=== PATIENT | male | born 1970 | race Caucasian/White ===

== ENCOUNTER 2017-01-16 17:44 | Inpatient (IN) | payer MEDICARE, MEDICAID ==
[2017-01-16] VITALS (15 sets, daily range): BP systolic 140–168; BP diastolic 55–106; PULSE 98–120; RESP 17–36; O2SAT 90–96
[~2017-01-16] VITALS: Ht 177.8 cm; Wt 130.2 kg
[~2017-01-16 17:44] MED LIST: ALBU3SOL2 IH; ALBUTHFA INH; BUDE1AMP IH; COU5 PO; FLONASE; FURO-3 PO; HC1O30 EXT; POTASSIUM 99MG PO; PRAM0.5T PO; RES15 PO; RISP0.254 PO; [UNRECOGNIZED DRUG - CODE] PO
--- NOTE | 2017-01-16 17:44 | ED.REPORT ---
HPI-Dyspnea / Wheezing Date of Service Jan 16, 2017 ED Provider: Asael Garcia MD Pt is a 46 year old male with a history of HTN and COPD who presents to the ED via EMS after an episode of respiratory distress. Per EMS, the pt c/o SOB onset this morning. EMS reports that the pt was found with wheezing and low SPO2. He presented to urgent care and was provided DuoNeb without relief. Pt denies chest pain, fever, diaphoresis, chills, nausea, and vomiting. The pt reports that he has mild swelling his legs, which is normal for him. He denies a history of recent surgeries. Pt is currently on Warfarin, and he reports that he was supposed to have his Warfarin levels checked today. Nursing Notes Stated Complaint: RESPIRATORY DISTRESS Chief Complaint: Respiratory Distress Nursing Notes Reviewed: Yes Allergies: Coded Allergies: Penicillins (Verified Allergy, Intermediate, HIVES, 01/16/17) Sulfa (Sulfonamide Antibiotics) (Verified Allergy, Unknown, 01/16/17) amoxicillin (Verified Allergy, Unknown, 01/16/17) latex (Verified Allergy, Unknown, 01/16/17) Scheduled Albuterol/Ipratropium (DuoNEB Nebule) 3 Ml Nebu 3 ML IH 6x day 1 NEB IH QID Furosemide-Expunged Drug, Do Not Renew! (Furosemide-Expunged Drug, Do Not Renew! ) 40 Mg Tablet 40 MG PO DAILY Levetiracetam-Expunged Drug, Do Not Renew! (Levetiracetam-Expunged Drug, Do Not Renew!) 500 Mg Tab.er.24h 1,000 MG PO BID TAKE 2 TABLETS(1000MG) Pramipexole-Expunged Drug, Do Not Renew! (Mirapex-Expunged Drug, Do Not Renew!) 0.5 Mg Tab 0.5 MG PO HS TAKE ONE-HALF TO ONE TABLET(0.25MG-0.5MG) ORALLY 1-2 HOURS BEFORE BEDTIME. Risperidone (Risperdal) 1 Mg Tablet 1 MG PO BID Salmeterol Xinafoate (Serevent Diskus) 50 Mcg/Puff Inhaler 1,400 MCG IH a12hr Warfarin Inactive Drug Do Not Use (Coumadin Inactive Drug Do Not Use) 5 Mg Tablet 5 MG PO TAKE DIRECTED BY A PHYSICIAN. Warfarin Sodium (Warfarin Sodium) 5 Mg Tablet 2.5 MG PO [id number] General Time Seen by MD: 17:44 Chief Complaint Shortness of breath Hx Obtained From: Patient, EMS Arrived By: Ambulance Sudden in Onset?: No Onset Occurred: 2 days ago Symptom Duration: Since onset Severity: Current: No pain currently Severity: Maximum: No pain Recent Healthcare: Recent doctor visit Similar Sx Previous: Yes Past Medical History Past Medical History History of sleep apnea on BiPAP Distant history of pulmonary embolism on warfarin Reports: COPD, Hypertension Past Surgical History Denies Smoking History Current Every Day Smoker (made a comment that he might be stopping shortly) Social History Alcohol Use: Denies alcohol use Drug Use: Denies drug use Other Social History: Good social support Ambulatory Status Independent Review of Systems Constitutional: Denies: Chills, Fever Respiratory: Reports: Dyspnea on exertion, Non-productive cough, Shortness of breath Musculoskeletal: Reports: Extremity swelling (which is baseline for him) Skin: Denies Diaphoresis Complete sys rev & neg: except as marked. GI: Denies: Nausea, Vomiting Physical Exam Initial Vital Signs Vital Signs (First) Date Time Temp Pulse Resp B/P Pulse Ox O2 Delivery O2 Flow Rate FiO2 01/16/17 17:46 120 36 162/106 91 Room Air BiPAP 01/16/17 18:08 36.7 01/16/17 18:17 35 01/16/17 19:00 2 Initial VS: Reviewed, Vital signs abnormal Head / Eyes: Atraumatic, Normocephalic Abdomen / GI: Soft, Non-tender Extremities: Vascular intact, Neuro intact Skin: Warm, Dry, No cyanosis Neurologic: Alert, Oriented, Nonfocal Psychiatric: Mood/affect normal, Behavior normal General/Constitutional: Awake, Alert Neck: Atraumatic, Supple, Full range of motion Resp Distress / Stridor: Positive: Resp distress moderate Fairly dypneic. Fairly diminished breath sounds with poor air movement, which is not chronic. Cardiovascular: Heart rate NL, Regular rhythm, Heart sounds NL +1 edema of both legs, which he states is chronic Interpretation & Diagnostics Lab Results Interpretation Result Diagram: 01/16/17 1752 01/16/17 1752 Test 01/16/17 17:30 01/16/17 17:52 01/16/17 17:58 01/16/17 18:35 White Blood Count 9.8th/mm3 (3.8-10.1) Red Blood Count 5.86mil/mm3 (4.40-5.80) Hemoglobin 17.5g/dL (13.8-17.2) Hematocrit 50.9% (41.0-50.0) Mean Corpuscular Volume 86.9fL (81-100) Mean Corpuscular Hemoglobin 29.9pg (27.0-35.0) Mean Corpuscular Hemoglobin Concent 34.4% (32.0-37.0) Red Cell Distribution Width 13.4% (12.3-15.4) Platelet Count 164bil/L (150-400) Neutrophils (%) (Auto) 88.2% (40-74) Lymphocytes (%) (Auto) 5.3% (14-46) Monocytes (%) (Auto) 5.9% (4-12) Eosinophils (%) (Auto) 0% (0-5) Basophils (%) (Auto) 0.3% (0-3) Sodium Level 137mEq/L (134-144) Potassium Level 4.6mEq/L (3.5-5.2) Chloride Level 98mEq/L (97-108) Carbon Dioxide Level 21mmol/L (18-29) Blood Urea Nitrogen 7mg/dL (6-24) Creatinine 0.83mg/dL (0.76-1.27) Estimat Glomerular Filtration Rate 105mL/min (>59) Glucose Level 125mg/dL (60-99) Calcium Level 8.7mg/dL (8.5-10.1) Total Bilirubin 0.8mg/dL (0.0-1.2) Aspartate Amino Transf (AST/SGOT) 25U/L (0-50) Alanine Aminotransferase (ALT/SGPT) 17U/L (0-44) Alkaline Phosphatase 99U/L (25-150) Troponin T < 0.010ug/L (0.0-0.011) Pro-B-Type Natriuretic Peptide 38.81pg/mL (0-121) Total Protein 7.8g/dL (6.4-8.4) Albumin 4.3g/dL (3.4-5.0) Prothrombin Time 36.7sec (8.1-12.5) Prothromb Time International Ratio 3.35ratio Lactic Acid Level 0.9mmol/L (0.4-2.0) Lab Results Interpretation: CBC polycythemic secondary to hypoxia/smoking CMP normal INR supratherapeutic Lactic acid normal Troponin negative CMP negative ECG Interpretation ECG Interpretation: Sinus tachycardia with a rate of 117 Time: 17:53 Interpreted by: ED physician X-Ray Chest Interpretation Chest Xray Interpretation: IMPRESSION: 1. No acute cardiopulmonary disease. Dictated by: Giuseppe Bartlett M.D. on 01/16/2017 at 18:16 View: Portable, 1 view Interpretation / Wet Read by: Interpret - Radiologist Re-Eval/Medical Decision Med Decision/Clinical Course Presents with a one-day history of worsening shortness breath or other COPD. He does have a distant history of pulmonary embolism and is on warfarin, reports no pleuritic chest pain or symptoms similar to his prior PE. He denies fevers chills or additional complaint. When EMS was contacted, he is hypoxic and respiratory distress and he received nebulizer urgent care, and then continue nebulizer placed on BiPAP due to his level of distress. On arrival, he is tachypneic, dyspneic, mildly hypoxic with poor air movement. He is not febrile, he has no overt findings of DVT on clinical exam. He received aggressive albuterol, Atrovent, continued BiPAP, Solu-Medrol, and made steady improvement with improvement in aeration and decrease in respiratory distress to the point that the BiPAP can be discontinued. His INR is slightly supratherapeutic, and I do not find an indication to suggest this is a pulmonary embolus. The patient given his COPD exacerbation was offered antibiotics, initial plan was to Zithromax given the reported allergy profile, but as it was about to be initiated he reports that "Zithromax makes me really worse" so this was held, and the end he received a dose of doxycycline, and is here hoping to go home he received it orally. However on rechecks he continue to have persistent bronchospasm and always while he is markedly improved, he is not improved to the point of discharge home-. Patient agrees. He is being admitted for continued management and the case is discussed with the hospital list. Source of Hx: Old records Re-Evaluation/Progress #1: Time of Eval: 18:35 Re-Evaluation/Progress Note: Pt rechecked. Pt reports that he is feeling better and agrees with plan to try a trial off Bipap. All questions addressed. Re-Evaluation/Progress #2: Time of Eval: 20:13 Re-Evaluation/Progress Note: Pt rechecked. Informed pt of plan for admission. Pt understands and agrees with plan for admission. All questions addressed. Consultation : Referral / Consult Name: Vish Butcher MD Consulted With: Hospitalist Call Returned at: 20:13 Computer Aided Drafter: Will see patient, Agrees with eval, Agrees with plan, Accepts admit Differential Diagnosis: Positive: COPD exacerbation, Negative: Acute coronary syndrome, Congestive heart failure, Dysrhythmia, Hypertensive emergency, Inhalation injury, Pneumonia, Pneumothorax, Pulmonary embolism, Respiratory failure Counseled Regarding: Diagnosis, Lab results, Need for admission Discharge & Departure Impression: Primary Impression: Acute exacerbation of chronic obstructive pulmonary disease (COPD) Additional Impressions: Tobacco abuse Supratherapeutic INR Disposition: ADMITTED TO HOSPITAL Discharge Condition All VS Reviewed: Yes Condition: Stable Referrals: Felipe Perkins DO (PCP) Crit Care Except Billable Proc Time Spent: 30-74 minutes Services Performed: Patient management by me, Time spent at bedside, Reviewing test results, Reviewing imaging, Discussing patient care, Documentation in record Scribe Attestation Portions of this note were transcribed by Rosy Garcia. I, Dr. Garcia personally performed the history, physical exam and medical decision-making; I reviewed and confirmed the accuracy of the information in the transcribed note. Signed by: Brittani Stark, 01/16/17. copies to: Felipe Perkins Matthew F MD Jan 16, 2017 17:44 Rosy Mariee Jan 16, 2017 17:53
[2017-01-16] MEDS ORDERED: Albuterol 2.5 mg/3 mL Inhalation Solution NEB ONE ×2 (17:55→19:35)
[2017-01-16] MEDS ORDERED: Ipratropium 0.02% 0.5 mg/2.5 mL Inhalation Solution NEB ONE (17:55)
[2017-01-16] MEDS ORDERED: MethylprednisoLONE Sodium Succinate 62.5 mg/mL 2 mL Inj IVPUSH ONE (17:55)
[2017-01-16 17:58] LABS: BASOPHILS % (AUTO) 0.3 % (0-3); EOSINOPHILS % (AUTO) 0 % (0-5); MONOCYTES % (AUTO) 5.9 % (4-12); Mean Corpuscular Hemoglobin 29.9 pg (27.0-35.0); Mean Corpuscular Volume 86.9 fL (81-100); NEUTROPHILS % (AUTO) 88.2 % (40-74); Platelet Count 164 bil/L (150-400)
[2017-01-16] MEDS ORDERED: WARF5TAB7 PO ×2 (17:59→21:12)
[2017-01-16] MEDS ORDERED: SALM50DI IH (17:59)
[2017-01-16] MEDS ORDERED: RISP1TAB90 PO (17:59)
[2017-01-16 18:13] LABS: INR 3.35 ratio
--- NOTE | 2017-01-16 18:19 | DRSVH ---
PROCEDURE: X-RAY CHEST ONE VIEW, PORTABLE ([id number]) INDICATIONS: SOB TECHNIQUE: One view of the chest was acquired. COMPARISON: [facility], , CHEST 2VW, 04/28/2014, 16:55. FINDINGS: Surgical changes and devices: None. Lungs and pleura: No pleural effusions or pneumothorax. Lungs are clear. Mediastinum: Mediastinal contours appear normal. Heart size is normal. Bones and chest wall: No suspicious bony lesions. Overlying soft tissues appear unremarkable. IMPRESSION: 1. No acute cardiopulmonary disease. Dictated by: Giuseppe Bartlett M.D. on 01/16/2017 at 18:16 Approved by: Giuseppe Bartlett M.D. on 01/16/2017 at 18:16
[2017-01-16 18:25] LABS: TROPONIN T < 0.010 ug/L (0.0-0.011)
[2017-01-16] MEDS ORDERED: 0.9% Sodium Chloride 500 ML IV ONE (18:30)
[2017-01-16] MEDS ORDERED: Azithromycin Inj 500 MG in Dextrose 5% w/Vial Mate 250 ML IV ONE (18:30)
[2017-01-16] MEDS ORDERED: Albuterol-Ipratropium 3 mL Inhalation Solution ONE (19:26)
[2017-01-16] MEDS ORDERED: Albuterol-Ipratropium 3 mL Inhalation Solution NEB ONE (19:35)
[2017-01-16] MEDS ORDERED: Polyethylene Glycol (PEG) 17 Gm Powder PO PRN (20:25)
[2017-01-16] MEDS ORDERED: Ondansetron 2 mg/mL 2 mL Inj IVPUSH PRN (20:25)
--- NOTE | 2017-01-16 20:59 | PCM.HPMED ---
Subjective Date of Service Jan 16, 2017 Primary Provider: Admitting Physician: Primary Care Physician: Felipe Perkins DO Attending Physician: Admit Status: From the Emergency Department, Full Admit, [facility] Telemetry Chief Complaint: Shortness of breathe History of Present Illness: Gee Plasencia is a 46 year old male with Pulmonary embolism, COPD, Sleep Apnea, Smoker and Hypertension who presents to [facility] emergency department via EMS after an episode of respiratory distress. Patient reported feeling sick in the last few days but worst in the last 24 hours. He has increased dyspnea with associated productive cough (yellow thick sputum), generalized fatigue and cold symptoms. He also reported increasing wheezing. He denies any head aches, myalgia. His had just recovered from a viral respiratory infection. No recent travels, pets or carpet change. Pt is currently on Warfarin due to Pulmonary embolism, and he reports that he was supposed to have his Warfarin levels checked today. In the Emergency department: patient still dyspneic Duoneb given in triage room and patient on 10L Non RB. He was placed briefly on BIPAP and had Solu-Medrol IV. Case discussed with Dr Garcia. Review of Systems: Pertinent positives as noted in HPI. All other systems were reviewed and are negative Allergies Coded Allergies: Penicillins (Verified Allergy, Intermediate, HIVES, 01/16/17) Sulfa (Sulfonamide Antibiotics) (Verified Allergy, Unknown, 01/16/17) amoxicillin (Verified Allergy, Unknown, 01/16/17) latex (Verified Allergy, Unknown, 01/16/17) Home Medications From [facility], not yet confirmed Gee Plasencia [id number] 1970 01/16/2017 05:05 PM 06/22 ergocalciferol (vitamin D2) 50,000 unit capsule take 1 capsule by oral route every week furosemide 40 mg tablet TAKE ONE TABLET DAILY hydrocortisone 1 % Topical Ointment apply by topical route 2 times every day to the affected area(s) ipratropium-albuterol 0.5 mg-3 mg(2.5 mg base)/3 mL nebulization soln inhale 3 milliliter by nebulization route 6 times every day Keppra 500 mg tablet take 2 tablets twice daily PRAMIPEXOLE 0.5 MG TABLET 0.5 MG TAB take 1/2 to 1 tablet 1 to 2 hours before bedtime Risperdal 1 mg tablet TAKE 1 TABLET TWICE DAILY Serevent Diskus 50 mcg/dose powder for inhalation inhale 1 puff by inhalation route 2 times every day in the morning and evening approximately 12 hours apart WARFARIN SODIUM 5 MG TABLET 5 MG TAB Take 1/2 tablet daily except for Monday, Monday and Monday take 1 tablet PMH Hypertension Insomnia Restless leg syndrome Bipolar 2 disorder Stroke PE (pulmonary embolism) on Coumadin Tobacco abuse Periodic limb movement DANG on CPAP COPD (chronic obstructive pulmonary disease) Vitamin D deficiency Psoriasis Obesity Epilepsy on Keppra Severe bipolar II disorder . Surgical History Tonsillectomy Excision of right suprapubic hidradenitis. Family History No history of Lung cancer or heart disease Social History Hx Alcohol Use: No Hx Substance Use: No Hx Tobacco Use: Yes Smoking Status: Current Every Day Smoker Living Arrangement: with Family Exam Vital Signs Vital Sign - Last Date Time Temp Pulse Resp B/P Pulse Ox O2 Delivery O2 Flow Rate FiO2 01/16/17 19:53 106 17 158/55 92 01/16/17 19:50 Nasal Cannula 2 01/16/17 18:19 35 01/16/17 18:08 36.7 Exam General: Alert, Oriented X3, Cooperative, No acute Distress Eyes: PERRLA, Scleral Anicteric Mouth: Mouth Normal, Mucous Membranes Moist/[place] Neck: Supple, no Thyromegaly, trachea central. Chest & Lungs: prolonged expiratory phase with wheezing, no crackles heard Cardiovascular: Normal S1, Normal S2, No Murmurs/Rubs/Gallops, Regular Rate/ Rhythm, (No JVD, no peripheral edema) Pulses: Radial (present and equal), Dorsalis Pedi (present and equal) Abdomen: Soft, Non-tender, Non-distended, Normoactive bowel tones. Musculoskeletal: Unremarkable. Normal range of motion, no swollen or erythematous joints Extremities: No edema, no cyanosis, no clubbing. Skin: No rashes. Warm and dry, no erythematous areas Neurological: Grossly neurologically intact, has generalized weakness, Normal Speech, Sensation Intact Lymphatic: Lymph nodes Cervical and Axillary not palpable Lab and Diagnostics Labs Laboratory Tests Test 01/16/17 17:30 01/16/17 17:52 01/16/17 17:58 01/16/17 18:35 White Blood Count 9.8th/mm3 (3.8-10.1) Red Blood Count 5.86mil/mm3 (4.40-5.80) Hemoglobin 17.5g/dL (13.8-17.2) Hematocrit 50.9% (41.0-50.0) Mean Corpuscular Volume 86.9fL (81-100) Mean Corpuscular Hemoglobin 29.9pg (27.0-35.0) Mean Corpuscular Hemoglobin Concent 34.4% (32.0-37.0) Red Cell Distribution Width 13.4% (12.3-15.4) Platelet Count 164bil/L (150-400) Neutrophils (%) (Auto) 88.2% (40-74) Lymphocytes (%) (Auto) 5.3% (14-46) Monocytes (%) (Auto) 5.9% (4-12) Eosinophils (%) (Auto) 0% (0-5) Basophils (%) (Auto) 0.3% (0-3) Sodium Level 137mEq/L (134-144) Potassium Level 4.6mEq/L (3.5-5.2) Chloride Level 98mEq/L (97-108) Carbon Dioxide Level 21mmol/L (18-29) Blood Urea Nitrogen 7mg/dL (6-24) Creatinine 0.83mg/dL (0.76-1.27) Estimat Glomerular Filtration Rate 105mL/min (>59) Glucose Level 125mg/dL (60-99) Calcium Level 8.7mg/dL (8.5-10.1) Total Bilirubin 0.8mg/dL (0.0-1.2) Aspartate Amino Transf (AST/SGOT) 25U/L (0-50) Alanine Aminotransferase (ALT/SGPT) 17U/L (0-44) Alkaline Phosphatase 99U/L (25-150) Troponin T < 0.010ug/L (0.0-0.011) Pro-B-Type Natriuretic Peptide 38.81pg/mL (0-121) Total Protein 7.8g/dL (6.4-8.4) Albumin 4.3g/dL (3.4-5.0) Prothrombin Time 36.7sec (8.1-12.5) Prothromb Time International Ratio 3.35ratio Lactic Acid Level 0.9mmol/L (0.4-2.0) Microbiology 01/16/17 Blood Culture, Received Pending Result Diagram: 01/16/17 1752 01/16/171751 X-Rays, CTs and MRIs X-RAY CHEST ONE VIEW, PORTABLE 01/16 IMPRESSION: 1. No acute cardiopulmonary disease. Dictated by: Giuseppe Bartlett M.D. on 01/16/2017 at 18:16 Approved by: Giuseppe Bartlett M.D. on 01/16/2017 at 18:16 Assessment & Plan Gee Plasencia is a 46 year old male with Pulmonary embolism, COPD, Sleep Apnea, Smoker and Hypertension who presents to [facility] emergency department via EMS after an episode of respiratory distress 1. Acute COPD exacerbation. Present on admission Likely due to viral or bacterial infection contracted through sick contact as well as continued pulmonary insult from smoking. No clinical evidence of Congestive heart failure. Pulmonary embolism less likely as patient therapeutic on Coumadin - oxygen supplementation - continue Steroids with Prednisone 40 mg daily x 5 days (REDUCE trial) - continue bronchodilator with DuoNeb scheduled every 4 hours, continuing Severent inhaler - Singulair 10 mg daily initiated - continue Doxycycline 100 mg bid, checking procalcitonin - consider Noninvasive mechanical ventilation if decompensate occurs overnight - consider Pulmonary rehabilitation 2 Pulmonary embolism on anticoagulations Etiology in unclear from records reviewed but seems to be Coumadin continuously - no evidence of bleeding - Pharmacy to manage Coumadin dosing 3 Nicotine dependence Cessation discussed and encouraged - Nicotine patch ordered 4 Seizure disorder, Chronic Stable with no recent seizure episodes - continue Keppra 1000 mg bid 5 Restless Leg syndrome and Sleep apnea - continue Risperdal 1 mg bid and Pramipexole 0.5 mg HS - Acetaminophen as needed for mild pain/fever/headache - Bowel regimen as needed - Antiemetic as needed Patient admitted under inpatient status with expected length of stay > 2 midnights for severity of present symptoms, complexities of treatment plan and risk for adverse event . Resuscitation Status: CPR: Attempt Resuscitation Vish Butcher MD Jan 16, 2017 20:59 furosemide 40 mg tablet TAKE ONE TABLET DAILY Risperdal 1 mg tablet TAKE 1 TABLET TWICE DAILY Serevent Diskus 50 mcg/dose powder for inhalation inhale 1 puff by inhalation route 2 times every day in the morning and evening approximately 12 hours apart Resuscitation Status: CPR: Attempt Resuscitation Vish Butcher MD Jan 16, 2017 20:59 WARFARIN SODIUM 5 MG TABLET 5 MG TAB Take 1/2 tablet daily except for Monday, Monday and Monday take 1 tablet Resuscitation Status: CPR: Attempt Resuscitation Vish Butcher MD Jan 16, 2017 20:59
[2017-01-16] MEDS ORDERED: KEP500TA PO (21:12)
[2017-01-16] MEDS ORDERED: FURO40TA4 PO (21:12)
[2017-01-16] MEDS ORDERED: IPRA3AMP IH (21:12)
[2017-01-16] MEDS ORDERED: SALM50DI INH (21:12)
[2017-01-16] MEDS ORDERED: PRAM0.5T3 PO (21:12)
--- NOTE | 2017-01-16 21:19 | PCM.CONPHA ---
Subjective Date of Service: Jan 16, 2017 Shortness of breathe Reason for Pharmacy Consult: Anticoagulation Management Objective Vital Signs Date Time Temp Pulse Resp B/P Pulse Ox O2 Delivery O2 Flow Rate FiO2 01/16/17 19:53 106 17 158/55 92 01/16/17 19:50 112 24 92 Nasal Cannula 2 01/16/17 19:44 26 92 01/16/17 19:42 105 26 92 Nasal Cannula 2 01/16/17 19:00 109 25 90 Nasal Cannula 2 01/16/17 18:45 112 19 140/100 96 BiPAP 01/16/17 18:22 114 18 95 BiPAP 01/16/17 18:19 102 24 95 BiPAP 35 01/16/17 18:17 24 95 35 01/16/17 18:08 36.7 116 24 154/102 96 BiPAP 01/16/17 17:46 120 36 162/106 91 Room Air BiPAP Weight (Kilograms): 113.64 Height (Feet): 6 Height (Inches): 0 Test 01/16/17 17:30 01/16/17 17:52 01/16/17 17:58 01/16/17 18:35 Procalcitonin 0.12ng/mL (0.00-0.08) White Blood Count 9.8th/mm3 (3.8-10.1) Red Blood Count 5.86mil/mm3 (4.40-5.80) Hemoglobin 17.5g/dL (13.8-17.2) Hematocrit 50.9% (41.0-50.0) Mean Corpuscular Volume 86.9fL (81-100) Mean Corpuscular Hemoglobin 29.9pg (27.0-35.0) Mean Corpuscular Hemoglobin Concent 34.4% (32.0-37.0) Red Cell Distribution Width 13.4% (12.3-15.4) Platelet Count 164bil/L (150-400) Neutrophils (%) (Auto) 88.2% (40-74) Lymphocytes (%) (Auto) 5.3% (14-46) Monocytes (%) (Auto) 5.9% (4-12) Eosinophils (%) (Auto) 0% (0-5) Basophils (%) (Auto) 0.3% (0-3) Sodium Level 137mEq/L (134-144) Potassium Level 4.6mEq/L (3.5-5.2) Chloride Level 98mEq/L (97-108) Carbon Dioxide Level 21mmol/L (18-29) Blood Urea Nitrogen 7mg/dL (6-24) Creatinine 0.83mg/dL (0.76-1.27) Estimat Glomerular Filtration Rate 105mL/min (>59) Glucose Level 125mg/dL (60-99) Calcium Level 8.7mg/dL (8.5-10.1) Total Bilirubin 0.8mg/dL (0.0-1.2) Aspartate Amino Transf (AST/SGOT) 25U/L (0-50) Alanine Aminotransferase (ALT/SGPT) 17U/L (0-44) Alkaline Phosphatase 99U/L (25-150) Troponin T < 0.010ug/L (0.0-0.011) Pro-B-Type Natriuretic Peptide 38.81pg/mL (0-121) Total Protein 7.8g/dL (6.4-8.4) Albumin 4.3g/dL (3.4-5.0) Prothrombin Time 36.7sec (8.1-12.5) Prothromb Time International Ratio 3.35ratio Lactic Acid Level 0.9mmol/L (0.4-2.0) Assessment/Plan Assessment/Plan Warfarin management per pharmacy Indication: hx of PE INR goal: 2-3 Home warfarin dose: 2.5 mg on //Mon, 5 mg on all other days of the week Pertinent info: - Admit dx: COPD exacerbation - INR today: 3.35 INR supratherapeutic. Hold warfarin dose today. Serial INR ordered x5. Pharmacy to continue to manage and dose warfarin daily. Thank you, Minesh Castorena Pharmacist Minesh Castorena Jan 16, 2017 21:19
--- NOTE | 2017-01-16 22:13 | NUR ---
admit patient received to room 2026 from the emergency department at 2145. patient oriented to room and call light and states understanding. allergy sticker placed to armband. bipap in room per RT and patient to be placed on it after being seen by MD and after admission completed. sats 92% on 3.[address] Null at 2150. denies pain or nausea. patient family instructed to bring cpap from home tomorrow when they come back. states understanding. tele box #[id number] placed. oncoming rn tom stallworth here at 2200 to assume care of patient. report given and oncoming rn to obtain vitals and assume care of patient. respiratory therapy in room when patient arrived at 2144 and notified at 2154 that patient ready for breathing treatment to be placed on bipap as admission process complete and patient seen by md.
[2017-01-16] MEDS ORDERED: CETI10CA PO (22:22)
[2017-01-16] MEDS: Albuterol-Ipratropium 3 mL Inhalation Solution NEB SCH (22:23)
[2017-01-16] MEDS: levETIRAcetam 500 mg Tablet PO SCH (23:10)
[2017-01-16] MEDS: risperiDONE 1 mg Tablet PO SCH (23:10)
[2017-01-17] VITALS (15 sets, daily range): BP systolic 113–150; BP diastolic 73–89; PULSE 70–98; RESP 19–28; O2SAT 89–95
[2017-01-17] MEDS: Albuterol-Ipratropium 3 mL Inhalation Solution NEB SCH ×6 (00:13→21:50)
[2017-01-17 01:16] LABS: APPEARANCE,URINE CLEAR (CLEAR,HAZY); COLOR,URINE YELLOW (YELLOW); OCCULT BLOOD,URINE NEGATIVE (NEGATIVE); UROBILINOGEN,URINE NORMAL (NORMAL)
[2017-01-17 04:19] LABS: INR 2.6 ratio
--- NOTE | 2017-01-17 05:57 | NUR ---
respitorty pt on hospital bipap at 35% and 14/8 SpO2 91-94% pt receiving neb treatments also, RR has slowed down to the 20s and pt appears to be in less distress and reports he is feeling a little better, will cont to monitor tele SR-ST 90-100s
[2017-01-17] MEDS: predniSONE 20 mg Tablet PO SCH (08:40)
[2017-01-17] MEDS: levETIRAcetam 500 mg Tablet PO SCH ×2 (08:40→20:56)
[2017-01-17] MEDS: Salmeterol 50 mcg/Puff 28 Inhalation Diskus INHALATION SCH (08:40)
--- NOTE | 2017-01-17 13:57 | PCM.PNMED ---
Subjective Date of Service Jan 17, 2017 Subjective 46 year old male with tobacco abuse, COPD, history of Pulmonary embolism, Sleep Apnea, and Hypertension presents with bronchospastic acute on chronic respiratory failure with hypoxia. States his breathing is moderately improved today but still not at baseline. Does not use home oxygen. Last steroid treatment 3 years ago. No recent antibiotics. He feels warm but no drenching sweats, chills. Phlegm is white to hall and decreasing in volume since initiation of antibiotics. Exam Vital Signs Vital Sign - Last Date Time Temp Pulse Resp B/P Pulse Ox O2 Delivery O2 Flow Rate FiO2 01/17/17 12:54 36.7 93 22 120/76 89 Nasal Cannula 4.00 01/17/17 08:03 35 Intake and Output 01/16/17 01/16/17 01/17/17 Cumulative From/Thru 15:00 23:00 07:00 01/16/17 17:46 - 01/17/17 06:07 Intake Total 500 ml 757 ml 1257 ml Output Total 1450 ml 1450 ml Balance 500 ml -693 ml -193 ml Intake Oral 757 ml 757 ml IV Total 500 ml 500 ml Output Urine Total 1450 ml 1450 ml Exam General: Healthy-appearing obese man no acute distress HEENT: sclerae anicteric, oral mucosa moist Neck: no JVD Chest: Diffuse mild to moderate wheezing, no focal rales. Cardiac: S1S2, no murmur Abdomen: BS normal, non-tender Extremities: No edema Neuro: A&O, cranial nerves symmetric, motor strength 5/5, coordination normal IVs and Medications Medications Reviewed: Medications were reviewed in detail Lab and Diagnostics Lactic acid 0.9. Procalcitonin 0.12 Result Diagram: 01/16/17175101/16/171751 X-Rays, CTs and MRIs X-RAY CHEST ONE VIEW, PORTABLE 01/16 IMPRESSION: 1. No acute cardiopulmonary disease. Dictated by: Giuseppe Bartlett M.D. on 01/16/2017 at 18:16 Approved by: Giuseppe Bartlett M.D. on 01/16/2017 at 18:16 Assessment & Plan Gee Plasencia is a 46 year old male with tobacco abuse and COPD presents with acute COPD exacerbation Acute and active problems: #. Acute on chronic respiratory failure with hypoxia. Acute COPD exacerbation. Present on admission. Likely due to viral or bacterial infection contracted through sick contact as well as continued pulmonary insult from smoking. No clinical evidence of Congestive heart failure. Pulmonary embolism less likely as patient therapeutic on Coumadin - oxygen supplementation as needed - continue Steroids with Prednisone 40 mg daily x 5 days (REDUCE trial) - continue bronchodilator with DuoNeb scheduled every 4 hours, continuing Severent inhaler - Singulair 10 mg daily initiated - continue Doxycycline 100 mg bid, #. Chronic COPD. - Plan to continue his home DuoNeb nebulizer and Serevent at time of discharge - Not previously on home O2; plan to taper oxygen to room air prior to discharge Resolving, stable and/or chronic problems: #. history of Pulmonary embolism, currently on warfarin anticoagulation Etiology in unclear from records reviewed but seems to be Coumadin continuously - no evidence of bleeding - Pharmacy to manage warfarin dosing #. Nicotine dependence Cessation discussed and encouraged - Nicotine patch ordered #. Seizure disorder, Chronic. Stable with no recent seizure episodes - continue Keppra 1000 mg bid #. Restless Leg syndrome and Sleep apnea - continue Risperdal 1 mg bid and Pramipexole 0.5 mg HS - Acetaminophen as needed for mild pain/fever/headache - Bowel regimen as needed - Antiemetic as needed Patient admitted under inpatient status with expected length of stay > 2 midnights for severity of present symptoms, complexities of treatment plan and risk for adverse event . Resuscitation Status: CPR: Attempt Resuscitation Time spent 30 minutes Carlos A Alexandre MD Jan 17, 2017 13:57
--- NOTE | 2017-01-17 15:46 | NUR ---
P: Respiratory Distress I: Pt c/o congestion. Afrin spray ordered and used. 4L/NC with sats 90-94%. Afebrile. VSS. NSR. Stand to void without difficulty. Taking diet and fluids well. Voiding qs. Saline lock patent. Alert and oriented x3. Lungs a little wheezy this am but better after nebs. E: Stable S: Uses call light appropriately. Frequent rounding.
[2017-01-17] MEDS: risperiDONE 1 mg Tablet PO SCH (20:57)
[2017-01-18] VITALS (11 sets, daily range): BP systolic 124–133; BP diastolic 72–81; PULSE 65–83; RESP 20–30; O2SAT 91–97
[2017-01-18] MEDS: Albuterol-Ipratropium 3 mL Inhalation Solution NEB SCH ×6 (01:22→21:07)
[2017-01-18 04:56] LABS: INR 1.78 ratio
--- NOTE | 2017-01-18 05:25 | NUR ---
cpap/respiratory pt using his home cpap this evening, pt needing 4L oxygen bleed in to keep his SpO2 greater then 92%, pt doesn't use oxygen at home. pt receiving q4 hour neb treatments which helps with his wheezing and tightness. pt stating he dose feel better
[2017-01-18] MEDS: predniSONE 20 mg Tablet PO SCH (10:17)
[2017-01-18] MEDS: Salmeterol 50 mcg/Puff 28 Inhalation Diskus INHALATION SCH (10:18)
[2017-01-18] MEDS: levETIRAcetam 500 mg Tablet PO SCH ×2 (10:18→19:40)
--- NOTE | 2017-01-18 12:48 | NUR ---
Social Work-initial assessment/readiness for discharge: Data:See initial assessment. Pt is a 46 y/o female who was admitted on 01/16/17 for COPD exac per H&P. Pt's insurance is [employer] and PCP is Felipe Perkins DO. EMR reviewed. Pt's readmission score is 4-high risk. SW met with pt and at bedside to discuss discharge planning, SW role explained. Pt is alert and oriented x3. Pt resides at home with his where he remains independent with ADLS. pt drives and does not use any DME. Pt has no HH or SNF. No DPOA/ advanced directive, information has been provided. Discharge planning checklist provided, SW encouraged them to call with questions, phone number provided. No anticipated discharge needs. SW will continue to follow if needs arise. Assessment:pt who is independent at baseline. Plan:Pt to discharge home when medically stable via POV. No anticipated discharge needs. SW will continue to follow if needs arise. ANA Acosta Addendum: 01/18/17 at 1251 by VERONICA MORAN Amended: Links added.
[2017-01-18] MEDS ORDERED: WARF2.5 PO ONE (17:00)
--- NOTE | 2017-01-18 17:27 | PCM.PNMED ---
Subjective Date of Service Jan 18, 2017 Subjective 46 year old male with tobacco abuse, COPD, history of Pulmonary embolism, Sleep Apnea, and Hypertension presents with bronchospastic acute on chronic respiratory failure with hypoxia. States his breathing is further improved today but still not at baseline. Sinus congestion is improved with Afrin. Cough is less productive. Still requiring oxygen which is not his baseline. Exam Vital Signs Vital Sign - Last Date Time Temp Pulse Resp B/P Pulse Ox O2 Delivery O2 Flow Rate FiO2 01/18/17 17:01 75 20 94 Nasal Cannula 3.50 01/18/17 13:42 126/80 01/18/17 10:12 36.7 01/17/17 08:03 35 Intake and Output 01/17/17 01/17/17 01/18/17 Cumulative From/Thru 15:00 23:00 07:00 01/16/17 17:46 - 01/18/17 05:59 Intake Total 1075 ml 872 ml 3204 ml Output Total 2350 ml 2500 ml 6300 ml Balance -1275 ml -1628 ml -3096 ml Intake Oral 1075 ml 872 ml 2704 ml IV Total 500 ml Output Urine Total 2350 ml 2500 ml 6300 ml Exam General: Healthy-appearing obese man no acute distress HEENT: sclerae anicteric, oral mucosa moist Neck: no JVD Chest: Diffuse mild wheezing, no focal rales. Cardiac: S1S2, no murmur Abdomen: BS normal, non-tender Extremities: No edema Neuro: A&O, cranial nerves symmetric, motor strength and coordination normal IVs and Medications Medications Reviewed: Medications were reviewed in detail Lab and Diagnostics Result Diagram: 01/16/17175101/16/171751 X-Rays, CTs and MRIs X-RAY CHEST ONE VIEW, PORTABLE 01/16 IMPRESSION: 1. No acute cardiopulmonary disease. Dictated by: Giuseppe Bartlett M.D. on 01/16/2017 at 18:16 Approved by: Giuseppe Bartlett M.D. on 01/16/2017 at 18:16 Assessment & Plan Gee Plasencia is a 46 year old male with tobacco abuse and COPD presents with acute COPD exacerbation Acute and active problems: #. Acute on chronic respiratory failure with hypoxia. Acute COPD exacerbation. Present on admission. Likely due to viral or bacterial infection contracted through sick contact as well as continued pulmonary insult from smoking. No clinical evidence of Congestive heart failure. Pulmonary embolism less likely as patient therapeutic on Coumadin - oxygen supplementation as needed - continue Steroids with Prednisone 40 mg daily x 5 days (REDUCE trial) - continue bronchodilator with DuoNeb scheduled every 4 hours, continuing Severent inhaler - Singulair 10 mg daily initiated - continue Doxycycline 100 mg bid, #. Chronic COPD. - Plan to continue his home DuoNeb nebulizer and Serevent at time of discharge - Not previously on home O2; plan to taper oxygen to room air prior to discharge #. History of Pulmonary embolism, currently on warfarin anticoagulation. Supratherapeutic INR on admission 3.35. - Pharmacy to manage warfarin dosing Resolving, stable and/or chronic problems: #. Nicotine dependence Cessation discussed and encouraged - Nicotine patch ordered #. Seizure disorder, Chronic. Stable with no recent seizure episodes - continue Keppra 1000 mg bid #. Restless Leg syndrome and Sleep apnea - continue Risperdal 1 mg bid and Pramipexole 0.5 mg HS - Acetaminophen as needed for mild pain/fever/headache - Bowel regimen as needed - Antiemetic as needed Patient admitted under inpatient status with expected length of stay > 2 midnights for severity of present symptoms, complexities of treatment plan and risk for adverse event . Resuscitation Status: CPR: Attempt Resuscitation Time spent 25 minutes Carlos A Alexandre MD Jan 18, 2017 17:27
--- NOTE | 2017-01-18 18:15 | NUR ---
Respiratory No reports of chest pain/pressure/discomfort. Tele DC'd this AM per MD orders, HR 70s-80s. BP within normal limits. Distal pulses palpable. Reports mild SOB at rest, RN notes resting respirations 28-32. SPO2 on 4L NC 91%. Reports increased SOB with ambulation. Intermittent productive cough with moderate creamy white/hall sputum. No reports of n/v/d/c or abdominal pain. Voiding without complication. Tolearting PO intake well.
[2017-01-18] MEDS: risperiDONE 1 mg Tablet PO SCH (19:40)
[2017-01-19] VITALS (11 sets, daily range): BP systolic 129–149; BP diastolic 76–95; PULSE 68–87; RESP 16–28; O2SAT 89–94
[2017-01-19] MEDS: Albuterol-Ipratropium 3 mL Inhalation Solution NEB SCH ×6 (00:33→20:19)
--- NOTE | 2017-01-19 00:53 | NUR ---
CPAP Pt titrated off 4L bleed in with his CPAP, sating low 90's. Pt denied any SOB or pain.
[2017-01-19 04:00] LABS: INR 1.73 ratio
[2017-01-19] MEDS: Salmeterol 50 mcg/Puff 28 Inhalation Diskus INHALATION SCH (09:18)
[2017-01-19] MEDS: predniSONE 20 mg Tablet PO SCH (09:18)
[2017-01-19] MEDS: levETIRAcetam 500 mg Tablet PO SCH ×2 (09:19→20:08)
--- NOTE | 2017-01-19 13:54 | PCM.PNMED ---
Subjective Date of Service Jan 19, 2017 Subjective He is improving but still short of breath and coughing up a fair amount of hall phlegm. No fevers or chills. No chest pain. He does still feel fatigued. His saturations are just under 90% room air he is breathing about 30 times a minute. He denies any abdominal pain. No difficulty with urination or bowel movements. No overnight events Exam Vital Signs Vital Sign - Last Date Time Temp Pulse Resp B/P Pulse Ox O2 Delivery O2 Flow Rate FiO2 01/19/17 12:00 79 20 90 Nasal Cannula 01/19/17 09:16 37.0 142/79 1.00 01/17/17 08:03 35 Intake and Output 01/18/17 01/18/17 01/19/17 Cumulative From/Thru 15:00 23:00 07:00 01/16/17 17:46 - 01/19/17 06:23 Intake Total 790 ml 1037 ml 5031 ml Output Total 1500 ml 1000 ml 8800 ml Balance -710 ml 37 ml -3769 ml Intake Oral 790 ml 1037 ml 4531 ml IV Total 0 ml 500 ml Output Urine Total 1500 ml 1000 ml 8800 ml # Voids 1 1 Exam Alert and oriented -3, no distress. Fluent speech Anicteric sclera. Lungs are with tachypnea, he also has expiratory prolongation and wheezing diffusely. Heart is regular without murmur gallop or rub Abdomen soft nontender, flat Extremities are free of edema. Skin is free of rash or lesions. IVs and Medications Medications Reviewed: Medications were reviewed in detail Lab and Diagnostics Result Diagram: 01/16/17175101/16/171751 X-Rays, CTs and MRIs X-RAY CHEST ONE VIEW, PORTABLE 01/16 IMPRESSION: 1. No acute cardiopulmonary disease. Dictated by: Giuseppe Bartlett M.D. on 01/16/2017 at 18:16 Approved by: Giuseppe Bartlett M.D. on 01/16/2017 at 18:16 Assessment & Plan Gee Plasencia is a 46 year old male with tobacco abuse and COPD presents with acute COPD exacerbation #. Acute on failure with hypoxia. Present on admission, and improving. Continue supplemental oxygen and wean as able. #Acute COPD exacerbation. Present on admission and improving. Likely due to viral or bacterial infection contracted through sick contact as well as continued pulmonary insult from smoking. No clinical evidence of Congestive heart failure. Pulmonary embolism less likely as patient therapeutic on Coumadin - oxygen supplementation as needed - continue Steroids with Prednisone 40 mg daily x 5 days (REDUCE trial) - continue bronchodilator with DuoNeb scheduled every 4 hours, continuing Severent inhaler - Singulair 10 mg daily initiated - continue Doxycycline 100 mg bid, #. History of Pulmonary embolism, currently on warfarin anticoagulation. By mouth and stable. Supratherapeutic INR on admission 3.35. - Pharmacy to manage warfarin dosing #. Nicotine dependence, by mouth and stable. Cessation discussed and encouraged - Nicotine patch ordered, he smokes about 10 cigarettes a day. #. Seizure disorder, by mouth and stable - continue Keppra 1000 mg bid #. Restless Leg syndrome and Sleep apnea. By mouth and stable. - continue Risperdal 1 mg bid and Pramipexole 0.5 mg HS - Acetaminophen as needed for mild pain/fever/headache - Bowel regimen as needed - Antiemetic as needed Patient admitted under inpatient status with expected length of stay > 2 midnights for severity of present symptoms, complexities of treatment plan and risk for adverse event. Possible discharge in last 1 day, he may need supplemental oxygen will qualify him tomorrow morning if necessary. . Resuscitation Status: CPR: Attempt Resuscitation Juan Amanda MD Jan 19, 2017 13:54
--- NOTE | 2017-01-19 18:38 | NUR ---
Respiratory No reports of chest pain/pressure/discomfort. No tele, HR 70s-80s. BP within normal limits. Distal pulses palpable. Reports mild SOB at rest, RN notes resting respirations 28-32. SPO2 weaned by NOC RN, per report no O2 bleed in for home CPAP. On 1LNC with SPO2 at 90% this AM, weaned to RA, has been maintaining at 90-93% on RA, SPO2 drops to 88-90% with activity but recovers quickly. No reports of n/v/d/c or abdominal pain. Voiding without complication. Tolearting PO intake well.
[2017-01-19] MEDS: risperiDONE 1 mg Tablet PO SCH (20:08)
[2017-01-19] MEDS: Alum-Mag Hydrox-Simeth 30 mL Suspension PO PRN (20:26)
[2017-01-20] VITALS: PULSE 72; O2SAT 90
[2017-01-20 04:17] VITALS: BP 134/86; PULSE 66; RESP 20; O2SAT 94
[2017-01-20 04:26] VITALS: PULSE 65; RESP 24; O2SAT 95
[2017-01-20] MEDS: Albuterol-Ipratropium 3 mL Inhalation Solution NEB SCH ×4 (04:26→11:11)
[2017-01-20 04:29] LABS: INR 2.4 ratio
--- NOTE | 2017-01-20 05:35 | NUR ---
Respiratory Pt on RA throughout all of overnight babysitter; reports "My breathing feels a lot better than it did yesterday and better than it did this morning." SpO2 91-93% on RA while awake, 91% on CPAP without oxygen bleed-in throughout sleep. No c/o pain. Independent with room activity and tolerates well. VSS. No telemetry.
[2017-01-20 07:31] VITALS: PULSE 79; RESP 18; O2SAT 93
[2017-01-20 08:00] VITALS: BP 152/99; PULSE 68; RESP 23; O2SAT 93
[2017-01-20] MEDS: Salmeterol 50 mcg/Puff 28 Inhalation Diskus INHALATION SCH (08:46)
[2017-01-20] MEDS: predniSONE 20 mg Tablet PO SCH (08:48)
[2017-01-20] MEDS: levETIRAcetam 500 mg Tablet PO SCH (08:48)
--- NOTE | 2017-01-20 09:00 | NUR ---
Resting Pt resting in bed this am. States he is feeling better and wants to leave. Care continues.
--- NOTE | 2017-01-20 10:15 | PCM.DIMED ---
Discharge Instructions Date of Service Jan 20, 2017 Dates of Hospitalization Jan 16, 2017 at 20:59 Discharge Diagnosis Discharge Diagnosis #. Acute respiratory failure with hypoxia. Present on admission, and improved #Acute COPD exacerbation. Present on admission and improved #. History of Pulmonary embolism, stable #. Nicotine dependence, stable. Encouraged to stop smoking. #. Seizure disorder #. Restless Leg syndrome #. Sleep apnea. Diet Discharge Diet: No restrictions Activity Discharge Activity: Limited until seen by PCP Call your provider Call your provider for: Fever or Chills, Shortness of breath, Chest pain Patient Instructions Follow-up Provider: Felipe Perkins DO Follow-up with PCP in: 1 week Juan Amanda MD Jan 20, 2017 10:15 Juan Amanda MD Jan 20, 2017 10:15
[2017-01-20] MEDS ORDERED: DOXY100T2 PO (10:17)
[2017-01-20] MEDS ORDERED: PRE20 PO (10:17)
[2017-01-20] MEDS: Alum-Mag Hydrox-Simeth 30 mL Suspension PO PRN (11:07)
[2017-01-20 11:10] VITALS: PULSE 77; RESP 18; O2SAT 92
--- NOTE | 2017-01-20 11:44 | NUR ---
Discharge Pt discharged at approximately 1144 to home with . Pt given educational pack for COPD and prednisone. Pt given prescriptions for Doxycycline and Prednisone. IV DC'd with catheter intact. Follow up information listed in discharge paperwork. Pt left with all personal belongings. Escorted by this RN in wheelchair to front door to wait for ride.
--- NOTE | 2017-01-20 16:13 | NUR ---
Social Work Note: Discharge Data& Assessment: EMR reviewed. Per MD pt is medically ready to discharge home via POV. Gee Plasencia is a 46 year old male admitted on 01/16/2017 for COPD exacerbation. Per MD pt is medically improved and ready to discharge home via POV. Per RN, pt states he is feeling better and feels like his breathing is improved as well. Pt ambulating SBA. No other MD orders identified. No other pt needs identified. Plan: Per pt is medically ready to discharge home via POV. No other MD orders identified. No other pt needs identified. All updated and agreeable to plan. ANA Soto
--- NOTE | 2017-01-21 09:15 | PCM.DC.MED ---
Discharge Summary Date of Service Jan 20, 2017 Dates of Hospitalization Date of Hospital Admission Jan 16, 2017 at 20:59 Date of Discharge: Jan 20, 2017 Providers: Admitting Physician: Vish Butcher MD Primary Care Physician: Felipe Perkins DO Attending Physician: Juan Amanda MD Diagnosis at Time of Discharge Diagnosis at Time of Discharge #. Acute respiratory failure with hypoxia. Present on admission, and improved #Acute COPD exacerbation. Present on admission and improved #. History of Pulmonary embolism, stable #. Nicotine dependence, stable. Encouraged to stop smoking. #. Seizure disorder #. Restless Leg syndrome #. Sleep apnea. Consultations None Procedures XRay, CTs & MRIs X-RAY CHEST ONE VIEW, PORTABLE 01/16 IMPRESSION: 1. No acute cardiopulmonary disease. Dictated by: Giuseppe Bartlett M.D. on 01/16/2017 at 18:16 Approved by: Giuseppe Bartlett M.D. on 01/16/2017 at 18:16 Invasive Procedures None Brief History Gee Plasencia is a 46 year old male with Pulmonary embolism, COPD, Sleep Apnea, Smoker and Hypertension who presents to [facility] emergency department via EMS after an episode of respiratory distress. Patient reported feeling sick in the last few days but worst in the last 24 hours. He has increased dyspnea with associated productive cough (yellow thick sputum), generalized fatigue and cold symptoms. He also reported increasing wheezing. He denies any head aches, myalgia. His had just recovered from a viral respiratory infection. No recent travels, pets or carpet change. Pt is currently on Warfarin due to Pulmonary embolism, and he reports that he was supposed to have his Warfarin levels checked today. In the Emergency department: patient still dyspneic Duoneb given in triage room and patient on 10L Non RB. He was placed briefly on BIPAP and had Solu-Medrol IV. Case discussed with Dr Garcia. Hospital Course Gee Plasencia is a 46 year old male with tobacco abuse and COPD presents with acute COPD exacerbation #. Acute on failure with hypoxia. Present on admission, and improving. Continue supplemental oxygen and wean as able. The patient improved to his baseline with treatment for COPD exacerbation. He was saturating 90% on room air at rest on the day of discharge. #Acute COPD exacerbation. Present on admission and improving. Likely due to viral or bacterial infection contracted through sick contact as well as continued pulmonary insult from smoking. No clinical evidence of Congestive heart failure. Pulmonary embolism less likely as patient therapeutic on Coumadin - oxygen supplementation as needed - continue Steroids with Prednisone 40 mg daily x 5 days (REDUCE trial) - continue bronchodilator with DuoNeb scheduled every 4 hours, continuing Severent inhaler - Singulair 10 mg daily initiated - continue Doxycycline 100 mg bid, He felt much improved with bronchodilators and antibiotics. He also received corticosteroids. #. History of Pulmonary embolism, currently on warfarin anticoagulation. By mouth and stable. Supratherapeutic INR on admission 3.35. - Pharmacy to manage warfarin dosing This remained stable throughout hospitalization #. Nicotine dependence, by mouth and stable. Cessation discussed and encouraged - Nicotine patch ordered, he smokes about 10 cigarettes a day. #. Seizure disorder, by mouth and stable - continue Keppra 1000 mg bid #. Restless Leg syndrome and Sleep apnea. By mouth and stable. - continue Risperdal 1 mg bid and Pramipexole 0.5 mg HS The patient was felt to be stable for discharge January 20 with close follow-up Exam Vital Signs (Last) Date Time Temp Pulse Resp B/P Pulse Ox O2 Delivery O2 Flow Rate FiO2 01/20/17 11:10 77 18 92 Room Air 01/20/17 08:00 36.5 152/99 01/19/17 12:00 1.00 01/17/17 08:03 35 Exam Patient was seen and examined on the day of discharge Test 01/16/17 17:30 01/16/17 17:52 01/16/17 18:35 01/17/17 01:00 Procalcitonin 0.12ng/mL (0.00-0.08) White Blood Count 9.8th/mm3 (3.8-10.1) Red Blood Count 5.86mil/mm3 (4.40-5.80) Hemoglobin 17.5g/dL (13.8-17.2) Hematocrit 50.9% (41.0-50.0) Mean Corpuscular Volume 86.9fL (81-100) Mean Corpuscular Hemoglobin 29.9pg (27.0-35.0) Mean Corpuscular Hemoglobin Concent 34.4% (32.0-37.0) Red Cell Distribution Width 13.4% (12.3-15.4) Platelet Count 164bil/L (150-400) Neutrophils (%) (Auto) 88.2% (40-74) Lymphocytes (%) (Auto) 5.3% (14-46) Monocytes (%) (Auto) 5.9% (4-12) Eosinophils (%) (Auto) 0% (0-5) Basophils (%) (Auto) 0.3% (0-3) Sodium Level 137mEq/L (134-144) Potassium Level 4.6mEq/L (3.5-5.2) Chloride Level 98mEq/L (97-108) Carbon Dioxide Level 21mmol/L (18-29) Blood Urea Nitrogen 7mg/dL (6-24) Creatinine 0.83mg/dL (0.76-1.27) Estimat Glomerular Filtration Rate 105mL/min (>59) Glucose Level 125mg/dL (60-99) Calcium Level 8.7mg/dL (8.5-10.1) Total Bilirubin 0.8mg/dL (0.0-1.2) Aspartate Amino Transf (AST/SGOT) 25U/L (0-50) Alanine Aminotransferase (ALT/SGPT) 17U/L (0-44) Alkaline Phosphatase 99U/L (25-150) Troponin T < 0.010ug/L (0.0-0.011) Pro-B-Type Natriuretic Peptide 38.81pg/mL (0-121) Total Protein 7.8g/dL (6.4-8.4) Albumin 4.3g/dL (3.4-5.0) Lactic Acid Level 0.9mmol/L (0.4-2.0) Urine Color Yellow (YELLOW) Urine Appearance Clear (CLEAR,HAZY) Urine pH 7.0 (5.0-8.0) Urine Specific [place] 1.010 (1.003-1.035) Urine Protein Negativemg/dL (NEG,TRACE) Urine Glucose (UA) Negativemg/dL (NEGATIVE) Urine Ketones Negativemg/dL (NEGATIVE) Urine Occult Blood Negative (NEGATIVE) Urine Nitrite Negative (NEGATIVE) Urine Bilirubin Negative (NEGATIVE) Urine Urobilinogen Normalmg/dL (NORMAL) Urine Leukocyte Esterase Negative (NEGATIVE) Urine RBC 0-2/hpf (0-2) Urine WBC 0-5/hpf (0-5) Urine Epithelial Cells None/hpf (NONE-MOD) Urine Crystals None seen (NONE SEEN) Urine Bacteria None/hpf (NONE-FEW) Urine Hyaline Casts None/lpf (NONE) Urine Granular Casts None seen (NONE SEEN) Urine Waxy Casts None seen (NONE SEEN) Urine Red Blood Cell Casts None seen (NONE SEEN) Urine White Blood Cell Casts None seen (NONE SEEN) Urine Mucus None seen (None Seen) Urine Trichomonas None seen (NONE SEEN) Urine Yeast None (NONE SEEN) Urinalysis Comment None Urine Culture Reflexed Not indicated Test 01/20/17 04:00 Prothrombin Time 26.1sec (8.1-12.5) Prothromb Time International Ratio 2.40ratio Discharge Medications Discharge Medications Cetirizine HCl (Zyrtec) 10 Mg Capsule 10 MG PO DAILY (Reported) Doxycycline Hyclate (Doxycycline Hyclate) 100 Mg Tablet 100 MG PO BID Prescribed by: JUAN AMANDA MD Levetiracetam (Keppra) 500 Mg Tablet 1,000 MG PO BID (Reported) Pramipexole Dihydrochloride (Mirapex) 0.5 Mg Tablet 0.5 MG PO HS (Reported) Prednisone (PredniSONE) 20 Mg Tablet 40 MG PO DAILY Prescribed by: JUAN AMANDA MD Risperidone (Risperdal) 1 Mg Tablet 1 MG PO HS (Reported) Salmeterol Xinafoate (Serevent Diskus) 50 Mcg/Puff Inhaler 1 PUFF INH DAILY ( Reported) Warfarin Sodium (Warfarin Sodium) 5 Mg Tablet 2.5 MG PO (Reported ) Warfarin Sodium (Warfarin Sodium) 5 Mg Tablet 5 MG PO mon,wed, mon, sat ( Reported) As needed Furosemide (Furosemide) 40 Mg Tablet 40 MG PO DAILY PRN PRN EDEMA (Reported) Ipratropium/Albuterol Sulfate (Iprat-Albut 0.5-3(2.5) mg/3 mL Inhalant Soln) 3 Ml Ampul.neb 3 ML IH Q6 PRN PRN For Shortness of Breath (Reported) Followup Plan Disposition: Home Discharge Diet: No restrictions Discharge Activity: Limited until seen by PCP Follow-up Provider: Felipe Perkins DO Follow-up with PCP in: 1 week Time spent 40 minutes Juan Amanda MD Jan 21, 2017 09:15
== END 2017-01-20 11:41 | disposition home or self-care (01) | DRG 189 ==
LOC: SED 17:44 → PCC 20:59
PROVIDERS: ADMIT Hospitalist; ATTEND Hospitalist
PROC: 5A09457 Assistance with Respiratory Ventilation, 24-96 Consecutive Hours, Continuous Positive Airway Pressure (ICD-10-PCS; principal; 2017-01-16)
DX: J96.21 Acute and chronic respiratory failure with hypoxia (principal); J44.1 Chronic obstructive pulmonary disease with (acute) exacerbation; F31.81 Bipolar II disorder; Z68.41 Body mass index [BMI] 40.0-44.9, adult; I27.82 Chronic pulmonary embolism; D75.1 Secondary polycythemia; G40.909 Epilepsy, unspecified, not intractable, without status epilepticus; G47.33 Obstructive sleep apnea (adult) (pediatric); G47.00 Insomnia, unspecified; F17.210 Nicotine dependence, cigarettes, uncomplicated; E66.9 Obesity, unspecified; G25.81 Restless legs syndrome; I10 Essential (primary) hypertension; Z88.0 Allergy status to penicillin; Z79.01 Long term (current) use of anticoagulants